=== PATIENT | male | born 1970 | race Two or more races ===

== ENCOUNTER 2020-09-22 10:47 | Emergency (ER) | payer OTHER ==
[~2020-09-22] VITALS: Ht 172.7 cm; Wt 95.0 kg
[2020-09-22] MEDS ORDERED: AZIT250T PO (11:03)
[2020-09-22] MEDS ORDERED: BENZONATATE 100 MG CAPSULE ONE (11:05)
[2020-09-22] MEDS ORDERED: DEXAMETHASONE 4 MG TABLET ONE (11:05)
--- NOTE | 2020-09-22 11:29 | NUR ---
Pt laying in bed, on phone,
[2020-09-22] MEDS ORDERED: BENZONATATE 100 MG CAPSULE PO ONE (11:30)
[2020-09-22] MEDS ORDERED: DEXAMETHASONE 4 MG TABLET PO ONE (11:30)
[2020-09-22 11:51] VITALS: BP 116/79
== END 2020-09-22 11:59 | disposition home or self-care (01) ==
LOC: ED 11:29
DX: U07.1 COVID-19 (principal); J40 Bronchitis, not specified as acute or chronic; E11.9 Type 2 diabetes mellitus without complications; Z87.891 Personal history of nicotine dependence
CPT/HCPCS: 71045; 99283

== ENCOUNTER 2020-12-12 21:58 | Inpatient (IN) | payer OTHER ==
[~2020-12-12] VITALS: Ht 172.7 cm; Wt 88.3 kg
[~2020-12-12 21:58] MED LIST: AZIT250T PO
--- NOTE | 2020-12-12 22:37 | NUR ---
PIV PLACED, LABS DRAWN. IVF RUNNING FOR HIGH FSBG.
--- NOTE | 2020-12-12 22:43 | NUR ---
STUDENT AT BEDSIDE FOR ASSESSMENT.
--- NOTE | 2020-12-12 22:49 | NUR ---
BEDSIDE REPORT RECEIVED FROM HARRY HELMS
[2020-12-12 23:15] LABS: BASOPHILS % (AUTO) 1 % (0-1); EOSINOPHILS % (AUTO) 4 % (1-7); LYMPHOCYTES % (AUTO) 39 % (22-44); MEAN CORPUSCULAR HEMOGLOBIN 31.6 pg (27.5-34.5); MEAN CORPUSCULAR HGB CONC 34.2 g/dL (33.2-36.2); MEAN PLATELET VOLUME 10.3 fL (7.4-10.4); MONOCYTES % (AUTO) 10 % (2-9); NEUTROPHILS % (AUTO) 46 % (42-75); PLATELET COUNT 166 x10^3/uL (130-400); RED BLOOD COUNT 5.17 x10^6/uL (4.38-5.82); RED CELL DISTRIBUTION WIDTH 14.5 % (9.4-14.8)
[2020-12-12 23:16] LABS: MD NO
[2020-12-12 23:27] LABS: ALANINE AMINOTRANSFERASE 111 U/L (12-78); ALBUMIN 3.6 g/dL (3.4-5.0); ANION GAP 10 mmol/L (5-15); CALCIUM 9.3 mg/dL (8.5-10.1); CHLORIDE 100 mmol/L (98-107); CREATININE 0.93 mg/dL (0.7-1.3)
--- NOTE | 2020-12-12 23:27 | NUR ---
PT AMBULATORY WITH STEADY GAIT TO BATHROOM TO PROVIDE URINE SAMPLE.
[2020-12-12 23:29] LABS: ALKALINE PHOSPHATASE 348 U/L (45-117); TOTAL PROTEIN 8.6 g/dL (6.4-8.2)
[2020-12-12] MEDS ORDERED: SODIUM CHLORIDE 0.9% 1,000ML IVBOLUS ONE (23:30)
[2020-12-12 23:46] LABS: MICROSCOPIC NOT IND
[2020-12-12 23:52] LABS: ACETONE, SERUM Large (80mg/dL) (Negative)
[2020-12-13] MEDS ORDERED: SODIUM CHLORIDE 0.9% 1,000 ML IV ONE (00:30)
[2020-12-13] MEDS ORDERED: INSULIN REGULAR 100 UNITS/ML, 3ML VIAL IVPush ONE (00:30)
--- NOTE | 2020-12-13 00:45 | NUR ---
HOSPITALIST AT BEDSIDE
[2020-12-13] MEDS ORDERED: SODIUM CHLORIDE 0.9% 1,000ML IVBOLUS ONE (01:00)
[2020-12-13] MEDS: ENOXAPARIN 40 MG/0.4 ML SQ SCH (01:30)
[2020-12-13] MEDS: SODIUM CHLORIDE 0.9% 1,000 ML IV SCH ×3 (01:30→20:59)
[2020-12-13] MEDS ORDERED: DOCUSATE 100 MG CAPSULE PO PRN (01:30)
[2020-12-13] MEDS ORDERED: LIDODERM 5% PATCH TD PRN (01:30)
[2020-12-13] MEDS ORDERED: MELATONIN 5 MG TABLET PO PRN (01:30)
--- NOTE | 2020-12-13 01:53 | NUR ---
Pt to be admitted to MED/SURG, room 338. Report called to JEANIE.
[2020-12-13] MEDS ORDERED: ENOXAPARIN 40 MG/0.4 ML ONE (02:05)
[2020-12-13 02:42] VITALS: BP 144/83
[2020-12-13 03:02] VITALS: BP 144/83
[2020-12-13 06:35] VITALS: BP 129/77
[2020-12-13] MEDS: INSULIN LISPRO 100 UNITS/ML, PEN SQ-INSULIN SCH ×4 (06:40→21:04)
[2020-12-13 07:25] LABS: BASOPHILS % (AUTO) 1 % (0-1); EOSINOPHILS % (AUTO) 5 % (1-7); LYMPHOCYTES % (AUTO) 43 % (22-44); MEAN CORPUSCULAR HEMOGLOBIN 30.9 pg (27.5-34.5); MEAN CORPUSCULAR HGB CONC 33.3 g/dL (33.2-36.2); MEAN PLATELET VOLUME 10.1 fL (7.4-10.4); MONOCYTES % (AUTO) 9 % (2-9); NEUTROPHILS % (AUTO) 43 % (42-75); PLATELET COUNT 140 x10^3/uL (130-400); RED BLOOD COUNT 4.74 x10^6/uL (4.38-5.82); RED CELL DISTRIBUTION WIDTH 14.6 % (9.4-14.8)
[2020-12-13 07:28] LABS: MD NO
[2020-12-13 07:32] LABS: ANION GAP 9 mmol/L (5-15); CALCIUM 8.3 mg/dL (8.5-10.1); CHLORIDE 107 mmol/L (98-107); CREATININE 0.73 mg/dL (0.7-1.3)
[2020-12-13 12:56] VITALS: BP 133/77
[2020-12-13 18:43] VITALS: BP 118/73
[2020-12-13] MEDS ORDERED: INSULIN GLARGINE 100 UNITS/ML, PEN SQ-INSULIN SCH (21:00)
[2020-12-14 00:33] VITALS: BP 113/72
[2020-12-14] MEDS: ENOXAPARIN 40 MG/0.4 ML SQ SCH (01:30)
[2020-12-14] MEDS: SODIUM CHLORIDE 0.9% 1,000 ML IV SCH (03:51)
[2020-12-14 06:53] VITALS: BP 130/83
[2020-12-14] MEDS: INSULIN LISPRO 100 UNITS/ML, PEN SQ-INSULIN SCH ×2 (07:51→11:55)
[2020-12-14] MEDS ORDERED: LANC1KIT SQ (11:36)
[2020-12-14] MEDS ORDERED: NEED-188 SQ (11:36)
[2020-12-14] MEDS ORDERED: INSU100I11 SQ-INSULIN (11:36)
[2020-12-14] MEDS ORDERED: INSU100I13 SQ-INSULIN (11:36)
[2020-12-14] MEDS ORDERED: [UNRECOGNIZED DRUG - CODE] PER MD (11:36)
[2020-12-14 12:45] VITALS: BP 135/79
[2020-12-14] MEDS ORDERED: INSULIN GLARGINE 100 UNITS/ML, PEN SQ-INSULIN SCH (21:00)
== END 2020-12-14 13:28 | disposition home or self-care (01) | DRG 639 ==
LOC: ED 22:28 → EDIP 12-13 01:29 → 3N 12-13 02:40 → DCLOUNGE 12-14 13:10
PROVIDERS: ADMIT Family Medicine; ATTEND Internal Medicine
DX: E10.65 Type 1 diabetes mellitus with hyperglycemia (principal); E86.0 Dehydration; I10 Essential (primary) hypertension; K76.0 Fatty (change of) liver, not elsewhere classified; Z86.16 Personal history of COVID-19; Z90.49 Acquired absence of other specified parts of digestive tract; Z91.14 Patient's other noncompliance with medication regimen; Z88.0 Allergy status to penicillin; Z88.6 Allergy status to analgesic agent; Z88.8 Allergy status to other drugs, medicaments and biological substances
CPT/HCPCS: 36415; 76700; 80048; 80053; 80074; 81003; 82010; 82962; 85025; 93005; 96374; 99285; G0378; J1650; J1815; J7030